=== PATIENT | male | born 1990 | race African-American/Black ===

== ENCOUNTER 2020-03-01 16:07 | Emergency (ER) | payer BC, OTHER ==
[~2020-03-01 16:07] MED LIST: OXYC1TAB12 PO
--- NOTE | 2020-03-01 16:11 | NUR ---
ATTEMPT TO CALL PT BACK ET PT NOT IN WAITING ROOM. 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
--- OUTSIDE RECORDS SUMMARY | 2020-03-01 19:16 | XMS REPORT | Continuity of Care Document ---
Author Organization Unknown Address Unknown Phone Unavailable Allergies Active Description Code Type Severity Reaction Onset Reported/Identified Relationship to Patient Clinical Status Yes No Known Drug Allergies [id number] Drug Allergy Unknown N/A 11/25/2015 Medications There is no data. Problems Date Dx Coded Attending Type Code Diagnosis Diagnosed By 11/25/2015 DIOR PALMA, REINA Lala Ot S83.411A SPRAIN OF MEDIAL COLLATERAL LIGAMENT OF 11/25/2015 DIOR PALMA, REINA Lala Ot X58.XXXA EXPOSURE TO OTHER SPECIFIED FACTORS, INI 11/25/2015 REINA RADER MD Ot Y93. 61 ACTIVITY, LIBYAN TACKLE FOOTBALL 11/25/2015 REINA RADER MD Ot Y99. 8 OTHER EXTERNAL CAUSE STATUS Procedures There is no data. Results There is no data. Encounters ACCT No. Visit Date/Time Discharge Status Pt. Type Provider Facility Loc./Unit Complaint [id number] 01/31/2020 10:30:00 01/31/2020 23:59: 59 CLS Outpatient [facility] [id number] 03/01/2020 16:08:00 020 16:11:00 DIS Emergency TAMMI LEPE APRN [facility] ER CP [id number] 11/25/2015 16:44:00 016 18:24:00 DIS Emergency REINA RADER MD [facility] ER R KNEE INJ
--- OUTSIDE RECORDS SUMMARY | 2020-03-01 19:16 | XMS REPORT ---
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 [employer] Address [address] [address] Care Team Providers Care Human Resources Team Member Name Role Phone REINA RADER MD Unavailable Unavailable TAMMI LEPE APRN Unavailable Unavailable JESUS BHATTI DO Unavailable Unavailable Unavailable Unavailable Allergies No Information Encounters Encounter Date Encounter Type Encounter Diagnosis Care Provider Facility Start: Emergency department TAMMI LEPE APRN [facility] 03-01-2020 patient visit [facility] End: 03-01-2020 Start: Emergency department REINA RADER MD [facility] 11-25-2015 patient visit [facility] End: 11-25-2015 Medical Equipment No Information Goals No Information Immunizations No Information Interventions No Information Medications No Information Payers No Information Plan of Treatment No Information Problems Problem Problem Date Last Documented Episodic/Chr Provider Classificati Recorded Date onic on E Codes: Exposure to other specified 03-01-2020 Episodic REINA DIOR Natural/envi factors, initial encounter MD nanci (1 source) E Codes: Activity, bulgarian tackle football 03-01-2020 Epis odic REINA DIOR Unspecified ; Translations: [Other external MD (2 sources) cause status] Sprains and Sprain of medial collateral 03-01-2020 Episodic REINA DIOR strains ligament of right knee, initial MD (2 sources) encounter Procedures No Information Results No Information Social History No Information Vital Signs No Information Functional Status No Information Mental Status No Information Additional Source Comments This clinical document has been generated using [employer] software that has been certified by the Office of the National Coordinator for Health Information Technology (ONC 15.99.04.3023.Diam.[id number]) and the National Committee for [employer] (NCQA, as an eMeasure certified technology). FOR RECORDS PERTAINING TO PATIENTS WHO ARE OR HAVE BEEN ENROLLED IN A CHEMICAL D EPENDENCY/SUBSTANCE ABUSE PROGRAM, SOME INFORMATION MAY BE OMITTED. This clinica l summary was aggregated from multiple sources. Caution should be exercised in using it in the provision of clinical care. This summary normalizes information from multiple sources, and as a consequence, information in this document may ma terially change the coding, format and clinical context of patient data. In roberta tion, data may be omitted in some cases. CLINICAL DECISIONS SHOULD BE BASED ON T HE PRIMARY CLINICAL RECORDS. [facility] [employer] [facility]. provides no warranty or guara ntee of the accuracy or completeness of information in this document.The followi ng information is based on time limited clinical information
== END 2020-03-01 16:11 | disposition left against medical advice (07) ==
LOC: EDUNIT# 16:07 → ER 16:08
DX: R07.9 Chest pain, unspecified (principal)